=== PATIENT | female | born 1985 | race Caucasian/White ===

== ENCOUNTER 2016-07-02 05:49 | Inpatient (IN) | payer OTHER, SELFPAY ==
[~2016-07-02] VITALS: Ht 170.2 cm; Wt 83.9 kg
--- NOTE | ~2016-07-02 | DS ---
PATIENT'S NAME: VIOLET ORO [facility] AGE: 30 Y [address] ROOM: [address] [address] LOCATION: [facility]BS ADMIT DATE: 07/02/2016 Discharge Summary DISCHARGE DATE: 07/04/2016 FAMILY PHYSICIAN: Vinny Rosa MD ATTENDING PHYSICIAN: Mariana Ho FINAL DIAGNOSES: Prior section at term. PROCEDURES PERFORMED: On 07/02/2016, repeat low transverse section. REASON FOR HOSPITALIZATION: Violet Oro is a 30-year-old female with a prior at term, necessitated a repeat section, she would present for her hospitalization, she would undergo a repeat low transverse section under spinal anesthesia. She would deliver a viable 8 pounds, 3 ounce female . She would have an unremarkable postoperative course then subsequently discharge on 04 of July. DISCHARGE MEDICATIONS: She is sent home with a prescription for Motrin and Percocet. FOLLOW UP: She is to return to see Dr. Ho, Dr. Rubio, her primary care provider in 6 weeks. MARIANA HO MD DHW/modl /[id number] d: 07/11/1645 t: 07/21/16716, DISCHARGE SUMMARY
--- NOTE | ~2016-07-02 | OR ---
PATIENT'S NAME: VIOLET ORO [facility] AGE: 30 Y [address] ROOM: [place] [address] LOCATION: [facility] ADMIT DATE: 07/02/2016 OR/Procedure Report DISCHARGE DATE: FAMILY PHYSICIAN: RAMIN ROSA MD ATTENDING PHYSICIAN: Mariana Ho SURGEON: Mariana Ho MD TAKER AWAY: Dr. Ramin Rosa. Dr. Rosa's assistance was required due to the complexity of the case as well as in compliance with guidelines. DATE OF PROCEDURE: 07/02/2016 PREOPERATIVE DIAGNOSIS: Prior section at term. POSTOPERATIVE DIAGNOSIS: Prior section at term. PROCEDURE: Repeat low-transverse section. ANESTHESIA: Spinal. ESTIMATED BLOOD LOSS: 500 mL. CLINICAL INDICATION: Violet Oro is a 30-year-old female, 2, para 1, at term. She had a prior section necessitating a repeat section. FINDINGS: Delivery of a viable 8 pounds 3 ounce female , score 8 at 1 minute, 9 at 5 minutes. umbilical, arterial cord blood gas was pending at the time of dictation. DESCRIPTION OF PROCEDURE: The patient was taken to the operating room, given spinal anesthesia with good results, placed in a supine position with a right hip roll, prepped and draped in the usual fashion. Prior Pfannenstiel scar was excised sharply. Subcutaneous tissue was dissected sharply. Fascial layer was incised sharply. The linea alba was dissected free of rectus muscles using a combination of sharp blunt dissection. Rectus muscles were split sharply in the midline. Peritoneum was incised sharply. Bladder flap was created. Myometrium was incised with a scalpel. Endometrial cavity was entered bluntly. Uterine incision was carried out laterally and superiorly in both directions using blunt dissection. At this point in time, there was a delivery of a viable 8 pounds 3 ounce female infant in a compound presentation with the right hand in front of the head. score is 8 at 1 minute, 9 at 5 minutes. umbilical arterial cord blood gas was pending at the time of dictation. The umbilical cord was doubly clamped, the intervening segment was cut, and infant was handed off to the awaiting nursing services. PATIENT'S NAME: VIOLET ORO [facility] AGE: 30 Y [address] ROOM: [place] [address] LOCATION: [facility] ADMIT DATE: 07/02/2016 OR/Procedure Report DISCHARGE DATE: FAMILY PHYSICIAN: RAMIN ROSA MD ATTENDING PHYSICIAN: Mariana Ho umbilical, arterial cord blood and venous cord blood were obtained for blood gas analysis and routine studies respectively. Placenta delivered spontaneously intact with 3 vessels. Exploration of the uterine cavity noted no residual placental or amniotic membranes. Uterine incision was closed in a running continually locking stitch of 0 chromic suture followed by a second imbricating layer consisting of running continuous stitch of 0 chromic suture. Good hemostasis was obtained. Bladder flap was closed with running continuous stitch of 2-0 Vicryl suture. Abdomen was inspected. Any blood or blood clots were retrieved. Tubes and ovaries were normal bilaterally. Abdominal peritoneum was closed with running continuous stitch of 2-0 Vicryl suture. The fascial incision was closed with 2 running continuous stitches of 0 Vicryl suture tied in the midline. Subcutaneous tissue was reapproximated using running continuous stitch of 2-0 Vicryl suture. The skin was closed with a running continuous subcuticular stitch of 2-0 Prolene suture. Sponge, needle, and instrument counts were correct. The patient tolerated the procedure well and was taken to the recovery room in good condition. MARIANA HO MD DHW/modl /[id number] CC: Ramin Rosa MD d: 07/02/16 2121 t: 07/05/16 0525, OPERATIVE SUMMARY
[~2016-07-02 05:49] MED LIST: LACTAID1 TAB; MOTRIN800 MG PO; OSCAL500 MG PO; PERCOCET 5-3251 EACH PO; PRENATAL 1+1)(P1 TAB PO
[2016-07-02 06:46] LABS: BASOPHIL % 0.3 %; EOSINOPHIL # 0.1 K/uL (0.0-0.5); HEMATOCRIT 36.1 % (33.0-46.0); HEMOGLOBIN 11.8 g/dL (11.0-15.0); IMMATURE GRANULOCYTE # 0.1 K/uL (0.0-0.3); IMMATURE GRANULOCYTE % 0.8 %; LYMPHOCYTE # 1.9 K/uL (0.8-4.0); LYMPHOCYTE % 21.5 %; MCH 27.7 pg (27.0-34.0); MCHC 32.7 gm/dL (32.0-36.5); MCV 84.7 fl (83.0-98.0); MONOCYTE # 0.7 K/uL (0.0-1.0); MONOCYTE % 8.3 %; MPV 11.8 fl (9.4-12.4); NEUTROPHIL # (ANC) 5.9 K/uL (1.8-7.8); NEUTROPHIL % 68.1 %; NRBC % 0 /100WBC (0-0.00); PLATELET COUNT 213 K/uL (150-450); RBC 4.26 M/uL (3.50-5.00); RDW-CV 13.8 % (11.9-14.6); WBC 8.7 K/uL (4.0-11.0)
--- NOTE | 2016-07-02 13:20 | NUR ---
Student charting read.
--- NOTE | 2016-07-02 18:32 | NUR ---
Last VS: T:98.0 P:76 R: 14 BP: 142/70 Pain rating: . Last pain med: percocet at 1445 and toradol at 1700 Medicated at: Effective: R Lung sounds: clear L Lung sounds: clear Fundus: firm 1 finger down Lochia: , Breasts: , Nipples: Incision: , Incision appearance: Microfoam dressing dry and intact. Incision closure: Bowel sounds: present Passing flatus: not yet Voiding well: holland catheter intact and 1150 clear yellow urine emptied from catheter baby. Catheter is suppose to come out at 1815. Patient had 2100 in I.V. and 4000 fluid intake. Significant event: .
[2016-07-03 04:48] LABS: BASOPHIL % 0.3 %; EOSINOPHIL # 0.2 K/uL (0.0-0.5); EOSINOPHIL % 1.6 %; HEMATOCRIT 34.2 % (33.0-46.0); HEMOGLOBIN 11.1 g/dL (11.0-15.0); IMMATURE GRANULOCYTE # 0.1 K/uL (0.0-0.3); IMMATURE GRANULOCYTE % 0.6 %; LYMPHOCYTE # 1.9 K/uL (0.8-4.0); LYMPHOCYTE % 15.9 %; MCH 27.5 pg (27.0-34.0); MCHC 32.5 gm/dL (32.0-36.5); MCV 84.9 fl (83.0-98.0); MONOCYTE # 0.7 K/uL (0.0-1.0); MONOCYTE % 6.2 %; MPV 12.2 fl (9.4-12.4); NEUTROPHIL # (ANC) 8.8 K/uL (1.8-7.8); NEUTROPHIL % 75.4 %; NRBC % 0 /100WBC (0-0.00); PLATELET COUNT 206 K/uL (150-450); RBC 4.03 M/uL (3.50-5.00); RDW-CV 13.8 % (11.9-14.6); WBC 11.7 K/uL (4.0-11.0)
--- NOTE | 2016-07-03 04:52 | NUR ---
VSS, fundus firm, midline, small flow, last scheduled Percocet due at 0800, microfoam dressing dry/intact
--- NOTE | 2016-07-03 11:36 | NUR ---
[id number] I supervised the [facility] PN student nurse providing patient cares.
--- NOTE | 2016-07-03 17:03 | NUR ---
Significant Event: Follow up: VSS, HBG 11.1, from 11.8. loose semi liquid BM x3. Has her own meds in med rm. Last percocet @ 3519 2) tabs, motrin & percocet @ 8694. Showered, abd dressing removed, steristips int. Voiding well, no clots reported. Ambulates freely. Plan home tomorrow.
--- NOTE | 2016-07-04 05:46 | NUR ---
VSS, up ad john, home today, last had Perocet and Motrin at 0530
[2016-07-04] MEDS ORDERED: MOTRIN800 MG PO (18:04)
== END 2016-07-04 18:35 | disposition disaster alternative care site (69) | DRG 766 ==
LOC: GOBS 05:49
PROVIDERS: ADMIT Obstetrics & Gynecology
PROC: 10D00Z1 Extraction of Products of Conception, Low, Open Approach (ICD-10-PCS; principal; 2016-07-02)
DX: O34.211 Maternal care for low transverse scar from previous cesarean delivery (principal); N85.8 Other specified noninflammatory disorders of uterus; Z3A.39 39 weeks gestation of pregnancy; Z37.0 Single live birth
CPT/HCPCS: J0295; J1885; J2590; J7120